=== PATIENT | female | born 1955 | race African-American/Black ===

== ENCOUNTER 2019-09-28 13:45 | Emergency (ER) | payer MEDICARE, MEDICAID, OTHER ==
[~2019-09-28] VITALS: Ht 162.6 cm; Wt 62.0 kg
[~2019-09-28 13:45] MED LIST: AMLO5TAB4 PO; ASPI-1497 PO; ATOR-2 PO; CARV25TA47 PO; LISI-604 PO; TICA90TA PO; TRAM50TA3 PO
[2019-09-28 18:00] LABS: CLARITY URINE CLOUDY (CLEAR); COLOR URINE YELLOW (YELLOW); KETONES URINE NEGATIVE (NEGATIVE); LEUKOCYTE ESTERASE URINE TRACE (NEGATIVE); NITRITE URINE NEGATIVE (NEGATIVE); OCCULT BLOOD URINE NEGATIVE (NEGATIVE); PROTEIN URINE NEGATIVE (NEGATIVE); SPECIFIC GRAVITY URINE 1.011 (1.005-1.030); UROBILINOGEN URINE 0.2 E.U./dL (0.2-1.0)
[2019-09-28 18:15] LABS: *BENZODIAZEPINES SCREEN URINE NEGATIVE (NEGATIVE); *COCAINE SCREEN URINE NEGATIVE (NEGATIVE); CANNABINOID URINE SCREEN NEGATIVE (NEGATIVE); METHADONE URINE SCREEN NEGATIVE (NEGATIVE); OPIATES URINE SCREEN NEGATIVE (NEGATIVE); PHENCYCLIDINE URINE SCREEN NEGATIVE (NEGATIVE)
[2019-09-28 18:16] LABS: *AMPHETAMINES SCREEN URINE NEGATIVE (NEGATIVE); *BARBITURATES SCREEN URINE NEGATIVE (NEGATIVE)
[2019-09-28 18:46] LABS: CHLORIDE 107 mEq/L (98-107)
[2019-09-28 18:51] LABS: BASOPHILS % 1.2 % (0.0-2.0); EOSINOPHILS % 2.7 % (0.0-5.0); HEMATOCRIT. 40.2 % (36.0-48.0); HEMOGLOBIN. 13.2 g/dL (12.0-16.0); LYMPHOCYTES % 30.5 % (20.0-50.0); MEAN CORPUSCULAR HEMOGLOBIN 29.2 pg (28.0-32.0); MEAN CORPUSCULAR VOLUME 88.9 fL (81.0-99.0); MONOCYTES % 10.2 % (2.0-8.0); NEUTROPHILS % 55.4 % (40.0-76.0); PLATELET 216 x1000/uL (130-400); RED BLOOD CELL COUNT 4.53 mill/uL (4.2-5.4); RED CELL DISTRIBUTION WIDTH 13.4 % (11.6-14.6)
[2019-09-28] MEDS ORDERED: NITROFURANTOIN 100MG M/M CAPSULE PO ONE (20:15)
[2019-09-28 22:00] VITALS: BP 121/58
== END 2019-09-28 22:08 | disposition home or self-care (01) ==
LOC: ER 14:08
DX: M94.0 Chondrocostal junction syndrome [Tietze] (principal); D72.819 Decreased white blood cell count, unspecified; N39.0 Urinary tract infection, site not specified; I10 Essential (primary) hypertension; R82.71 Bacteriuria; I25.10 Atherosclerotic heart disease of native coronary artery without angina pectoris; E78.00 Pure hypercholesterolemia, unspecified; Z87.440 Personal history of urinary (tract) infections; Z87.09 Personal history of other diseases of the respiratory system
CPT/HCPCS: 36415; 71045; 80053; 80305; 81003; 83880; 84484; 85025; 93005; 99284; 99285

== ENCOUNTER 2022-04-26 09:19 | Inpatient (IN) | payer MEDICAID, MEDICARE, OTHER ==
[2022-04-25 17:00] VITALS: BP 170/89
[~2022-04-26] VITALS: Ht 162.6 cm; Wt 47.6 kg
[~2022-04-26 09:19] MED LIST changes: -LISI-604 PO; +LISI20TA31 PO
[2022-04-26] MEDS ORDERED: CARVEDILOL 3.125 MG TABLET PO ONE (10:30)
[2022-04-26] MEDS ORDERED: LISINOPRIL 20MG TABLET PO ONE (10:30)
[2022-04-26 11:37] LABS: BASOPHILS % 1.1 % (0.0-2.0); HEMATOCRIT. 43.4 % (36.0-48.0); HEMOGLOBIN. 14.1 g/dL (12.0-16.0); LYMPHOCYTES % 38.7 % (20.0-50.0); MEAN CORPUSCULAR HEMOGLOBIN 28.7 pg (28.0-32.0); MEAN CORPUSCULAR VOLUME 88.5 fL (81.0-99.0); MEAN PLATELET VOLUME 8.8 fl (7.4-10.4); MONOCYTES % 10.9 % (2.0-8.0); NEUTROPHILS % 45.3 % (40.0-76.0); PLATELET 203 x1000/uL (130-400); RED BLOOD CELL COUNT 4.91 mill/uL (4.2-5.4); RED CELL DISTRIBUTION WIDTH 13.5 % (11.6-14.6)
[2022-04-26 11:42] LABS: CHLORIDE 107 mEq/L (98-107)
[2022-04-26] MEDS ORDERED: ACETAMINOPHEN 325MG TABLET PO ONE (12:15)
[2022-04-26] MEDS ORDERED: ACETAMINOPHEN 325MG TABLET PO PRN ×2 (16:15)
[2022-04-26] MEDS ORDERED: MAGNESIUM/ALUMINUM HYDROXIDE/SIMETHICONE 30ML UDC PO PRN (16:15)
[2022-04-26] MEDS ORDERED: GUAIFENESIN 200MG/10ML SUGAR FREE UDC PO PRN (16:15)
[2022-04-26] MEDS ORDERED: IPRATROPIUM/ALBUTEROL 0.5-3(2.5)MG/3ML NEB HHN PRN (16:15)
[2022-04-26] MEDS ORDERED: ONDANSETRON HCL 4MG/2ML INJ IV PRN (16:15)
[2022-04-26] MEDS ORDERED: NALOXONE HCL 0.4MG/ML VIAL IV PRN (16:15)
[2022-04-26] MEDS ORDERED: DOCUSATE SODIUM 100MG CAPSULE PO PRN (16:15)
[2022-04-26] MEDS ORDERED: MEDICATION NOT ON FORMULARY EA (Carvedilol 25 MG) PO SCH (17:00)
[2022-04-26] MEDS ORDERED: IPRATROPIUM BROMIDE (0.02%) 0.5MG/2.5ML NEB HHN PRN (17:15)
[2022-04-26] MEDS ORDERED: ALBUTEROL (0.083%) 2.5MG/3ML NEB HHN PRN (17:15)
[2022-04-26] MEDS: CLONIDINE 0.1MG TABLET PO PRN (17:34)
[2022-04-26] MEDS: HYDROCODONE/ACETAMINOPHEN 5/325MG TABLET PO PRN (17:37)
[2022-04-26 20:00] VITALS: BP 107/57
[2022-04-26] MEDS: CARVEDILOL 12.5MG TABLET PO SCH (20:12)
[2022-04-26] MEDS: ENOXAPARIN 40MG/0.4ML SYR SUBCUT SCH (20:25)
[2022-04-26] MEDS: TICAGRELOR 90 MG TABLET PO SCH (20:26)
[2022-04-26 23:58] LABS: CREATINE KINASE 50 IU/L (26-192); CREATINE KINASE MB FRACTION < 1.0 ng/mL (0.5-3.6)
[2022-04-27] VITALS: BP 105/61
[2022-04-27 02:48] LABS: CLARITY URINE CLEAR (CLEAR); COLOR URINE YELLOW (YELLOW); KETONES URINE TRACE (NEGATIVE); LEUKOCYTE ESTERASE URINE NEGATIVE (NEGATIVE); NITRITE URINE NEGATIVE (NEGATIVE); OCCULT BLOOD URINE NEGATIVE (NEGATIVE); PROTEIN URINE NEGATIVE (NEGATIVE); UROBILINOGEN URINE 0.2 E.U./dL (0.2-1.0)
[2022-04-27 04:00] VITALS: BP 128/69
[2022-04-27] MEDS: HYDROCODONE/ACETAMINOPHEN 5/325MG TABLET PO PRN ×3 (04:29→22:37)
[2022-04-27 06:23] LABS: EOSINOPHILS % 4.9 % (0.0-5.0); HEMATOCRIT. 37.3 % (36.0-48.0); HEMOGLOBIN. 12.5 g/dL (12.0-16.0); MEAN CORPUSCULAR HEMOGLOBIN 29.3 pg (28.0-32.0); MEAN CORPUSCULAR VOLUME 87.6 fL (81.0-99.0); MEAN PLATELET VOLUME 9.1 fl (7.4-10.4); MONOCYTES % 11.4 % (2.0-8.0); NEUTROPHILS % 42.7 % (40.0-76.0); PLATELET 190 x1000/uL (130-400); RED BLOOD CELL COUNT 4.26 mill/uL (4.2-5.4); RED CELL DISTRIBUTION WIDTH 13.2 % (11.6-14.6)
[2022-04-27 07:04] LABS: CHLORIDE 105 mEq/L (98-107)
[2022-04-27 08:00] VITALS: BP 107/64
[2022-04-27 08:59] LABS: CREATINE KINASE 51 IU/L (26-192); CREATINE KINASE MB FRACTION < 1.0 ng/mL (0.5-3.6); HDL CHOLESTEROL 61 mg/dL (40-59); T4 FREE 0.94 ng/dL (0.76-1.46)
[2022-04-27] MEDS ORDERED: ATORVASTATIN CALCIUM 40MG TABLET PO SCH (09:00)
[2022-04-27] MEDS: AMLODIPINE 5MG TABLET PO SCH ×2 (09:00→10:21)
[2022-04-27] MEDS: CARVEDILOL 12.5MG TABLET PO SCH ×2 (09:00→10:21)
[2022-04-27] MEDS ORDERED: MEDICATION NOT ON FORMULARY EA (Atorvastatin Calcium 80 MG) PO SCH (09:00)
[2022-04-27] MEDS: LISINOPRIL 20MG TABLET PO SCH ×2 (09:00→10:22)
[2022-04-27] MEDS ORDERED: POTASSIUM CHLORIDE 20MEQ TABLET SR PO NR (09:30)
[2022-04-27] MEDS: TICAGRELOR 90 MG TABLET PO SCH ×2 (10:22→20:47)
[2022-04-27] MEDS: ASPIRIN 81MG EC TABLET PO SCH (10:22)
[2022-04-27 12:00] VITALS: BP 100/56
[2022-04-27 15:02] LABS: LDL CHOLESTEROL 117 mg/dL (5-100)
[2022-04-27 16:00] VITALS: BP 127/71
[2022-04-27 20:00] VITALS: BP 119/70
[2022-04-27] MEDS: ENOXAPARIN 40MG/0.4ML SYR SUBCUT SCH (20:47)
[2022-04-27] MEDS: ATORVASTATIN CALCIUM 40MG TABLET PO SCH (20:47)
[2022-04-28] VITALS: BP 102/67
[2022-04-28 04:00] VITALS: BP 147/80
[2022-04-28] MEDS: HYDROCODONE/ACETAMINOPHEN 5/325MG TABLET PO PRN ×4 (04:42→14:09)
[2022-04-28 07:50] LABS: BASOPHILS % 0.8 % (0.0-2.0); EOSINOPHILS % 4.4 % (0.0-5.0); HEMATOCRIT. 38.8 % (36.0-48.0); HEMOGLOBIN. 12.6 g/dL (12.0-16.0); MEAN CORPUSCULAR HEMOGLOBIN 28.7 pg (28.0-32.0); MEAN CORPUSCULAR VOLUME 88.1 fL (81.0-99.0); MEAN PLATELET VOLUME 8.7 fl (7.4-10.4); MONOCYTES % 10.8 % (2.0-8.0); PLATELET 192 x1000/uL (130-400); RED CELL DISTRIBUTION WIDTH 13.2 % (11.6-14.6)
[2022-04-28 08:00] VITALS: BP 145/72
[2022-04-28] MEDS ORDERED: POTASSIUM PHOS,M-BASIC-D-BASIC 10 MMOL in DEXT 5% WATER 246.6667 ML IV ONE (08:00)
[2022-04-28 08:20] LABS: CHLORIDE 107 mEq/L (98-107)
[2022-04-28] MEDS: ASPIRIN 81MG EC TABLET PO SCH (08:50)
[2022-04-28] MEDS: CARVEDILOL 12.5MG TABLET PO SCH (08:50)
[2022-04-28] MEDS: TICAGRELOR 90 MG TABLET PO SCH ×2 (08:57→20:45)
[2022-04-28 09:32] LABS: PHOSPHORUS 3.9 mg/dL (2.5-4.9)
[2022-04-28 10:52] LABS: PROTHROMBIN TIME 10.9 sec (9.6-11.0)
[2022-04-28 12:00] VITALS: BP 100/61
[2022-04-28] MEDS ORDERED: HYDROCODONE/ACETAMINOPHEN 7.5/325MG TABLET PO PRN (16:30)
[2022-04-28] MEDS: HYDROCODONE/ACETAMINOPHEN 7.5/325MG TABLET PO PRN ×2 (17:09→20:45)
[2022-04-28 20:00] VITALS: BP 132/72
[2022-04-28] MEDS: ATORVASTATIN CALCIUM 40MG TABLET PO SCH (20:45)
[2022-04-29] VITALS: BP 151/80
[2022-04-29 04:00] VITALS: BP 133/77
[2022-04-29 06:50] LABS: BASOPHILS % 1.1 % (0.0-2.0); EOSINOPHILS % 5.7 % (0.0-5.0); HEMATOCRIT. 41.4 % (36.0-48.0); HEMOGLOBIN. 13.7 g/dL (12.0-16.0); LYMPHOCYTES % 44.5 % (20.0-50.0); MEAN CORPUSCULAR VOLUME 87.7 fL (81.0-99.0); MEAN PLATELET VOLUME 8.9 fl (7.4-10.4); MONOCYTES % 13.2 % (2.0-8.0); NEUTROPHILS % 35.5 % (40.0-76.0); PLATELET 200 x1000/uL (130-400); RED BLOOD CELL COUNT 4.72 mill/uL (4.2-5.4); RED CELL DISTRIBUTION WIDTH 13.1 % (11.6-14.6)
[2022-04-29 07:47] LABS: CHLORIDE 106 mEq/L (98-107)
[2022-04-29 08:00] VITALS: BP 152/69
[2022-04-29] MEDS: TICAGRELOR 90 MG TABLET PO SCH (08:46)
[2022-04-29] MEDS: CARVEDILOL 12.5MG TABLET PO SCH ×2 (09:33→21:14)
[2022-04-29] MEDS: LISINOPRIL 20MG TABLET PO SCH (09:34)
[2022-04-29] MEDS: AMLODIPINE 5MG TABLET PO SCH (09:34)
[2022-04-29 12:00] VITALS: BP 127/66
[2022-04-29] MEDS: HYDROCODONE/ACETAMINOPHEN 7.5/325MG TABLET PO PRN (13:44)
[2022-04-29 16:00] VITALS: BP 153/68
[2022-04-29 20:00] VITALS: BP 144/77
[2022-04-29] MEDS: ATORVASTATIN CALCIUM 40MG TABLET PO SCH (21:13)
[2022-04-30] VITALS: BP 132/68
[2022-04-30 04:00] VITALS: BP 131/74
[2022-04-30] MEDS: HYDROCODONE/ACETAMINOPHEN 10/325MG TABLET PO PRN (04:55)
[2022-04-30 07:35] LABS: BASOPHILS % 0.8 % (0.0-2.0); EOSINOPHILS % 4.4 % (0.0-5.0); HEMATOCRIT. 41.1 % (36.0-48.0); HEMOGLOBIN. 13.5 g/dL (12.0-16.0); LYMPHOCYTES % 39.5 % (20.0-50.0); MEAN CORPUSCULAR HEMOGLOBIN 28.7 pg (28.0-32.0); MEAN CORPUSCULAR VOLUME 87.6 fL (81.0-99.0); MEAN PLATELET VOLUME 8.8 fl (7.4-10.4); MONOCYTES % 12.5 % (2.0-8.0); NEUTROPHILS % 42.8 % (40.0-76.0); PLATELET 193 x1000/uL (130-400)
[2022-04-30 07:50] VITALS: BP 92/57
[2022-04-30] MEDS: LISINOPRIL 20MG TABLET PO SCH (07:52)
[2022-04-30] MEDS: AMLODIPINE 5MG TABLET PO SCH (07:52)
[2022-04-30] MEDS: CARVEDILOL 12.5MG TABLET PO SCH ×2 (07:52→21:11)
[2022-04-30 08:46] LABS: CHLORIDE 106 mEq/L (98-107)
[2022-04-30 08:55] LABS: PHOSPHORUS 3.6 mg/dL (2.5-4.9)
[2022-04-30 12:40] VITALS: BP 114/73
[2022-04-30] MEDS: HYDROCODONE/ACETAMINOPHEN 5/325MG TABLET PO PRN ×2 (12:45→21:10)
[2022-04-30 15:30] VITALS: BP 140/67
[2022-04-30 20:00] VITALS: BP 124/65
[2022-04-30] MEDS: ATORVASTATIN CALCIUM 40MG TABLET PO SCH (21:10)
[2022-05-01] VITALS: BP 120/61
[2022-05-01 04:00] VITALS: BP 137/71
[2022-05-01] MEDS ORDERED: GENTAMICIN SULF 40MG/ML 2ML VIAL ONE (05:40)
[2022-05-01] MEDS ORDERED: LIDOCAINE HCL 1%/EPI 1:200,000 30 ML VIAL ONE (05:40)
[2022-05-01] MEDS ORDERED: THROMBIN (BOVINE) 5000 UNITS/VIAL TOP ONE (05:40)
[2022-05-01] MEDS ORDERED: SKIN ADHESIVE 0.7 GM EA TOP ONE (05:40)
[2022-05-01] MEDS ORDERED: PROPOFOL 200MG/20ML VIAL IV ONE (06:30)
[2022-05-01] MEDS ORDERED: MIDAZOLAM HCL 2 MG/2 ML VIAL ONE (06:38)
[2022-05-01] MEDS ORDERED: FENTANYL CITRATE/PF 50MCG/ML 2ML VIAL ONE (06:40)
[2022-05-01] MEDS ORDERED: ONDANSETRON HCL 4MG/2ML INJ ONE (08:28)
[2022-05-01] MEDS ORDERED: SUCCINYLCHOLINE CHLORIDE 200MG/10ML IV ONE (08:28)
[2022-05-01] MEDS ORDERED: CEFAZOLIN SODIUM 1000MG/VIAL ONE (08:28)
[2022-05-01] MEDS ORDERED: LIDOCAINE HCL 1% 20ML VIAL (Pyxis) INJ ONE (08:29)
[2022-05-01] MEDS ORDERED: ROCURONIUM BROMIDE 10MG/ML VIAL 5ML IV ONE (08:29)
[2022-05-01] MEDS ORDERED: FENTANYL CITRATE/PF 50MCG/ML 2ML VIAL IV PRN (08:30)
[2022-05-01] MEDS: AMLODIPINE 5MG TABLET PO SCH (08:51)
[2022-05-01] MEDS: LISINOPRIL 20MG TABLET PO SCH (08:51)
[2022-05-01] MEDS: CARVEDILOL 12.5MG TABLET PO SCH ×2 (08:51→21:09)
[2022-05-01 11:57] VITALS: BP 144/72
[2022-05-01] MEDS: MORPHINE SULFATE 4 MG/ML CPJ (NOT FOR IM USE) IV PRN (13:42)
[2022-05-01] MEDS ORDERED: CEFAZOLIN SODIUM 1000MG/VIAL IV SCH (14:00)
[2022-05-01] MEDS: CEFAZOLIN 1000MG PREMIX 50 ML IV SCH ×2 (15:22→23:39)
[2022-05-01 16:00] VITALS: BP 142/71
[2022-05-01 16:56] LABS: HEMATOCRIT. 42.8 % (36.0-48.0); HEMOGLOBIN. 13.8 g/dL (12.0-16.0); MEAN CORPUSCULAR HEMOGLOBIN 28.9 pg (28.0-32.0); MEAN CORPUSCULAR VOLUME 89.8 fL (81.0-99.0); MEAN PLATELET VOLUME 9.2 fl (7.4-10.4); PLATELET 136 x1000/uL (130-400); RED BLOOD CELL COUNT 4.76 mill/uL (4.2-5.4); RED CELL DISTRIBUTION WIDTH 12.7 % (11.6-14.6)
[2022-05-01 17:02] LABS: CHLORIDE 106 mEq/L (98-107)
[2022-05-01 20:00] VITALS: BP_SYST 127; BP_SYST 149; BP_DIAS 64; BP_DIAS 80
[2022-05-01] MEDS: HYDROCODONE/ACETAMINOPHEN 10/325MG TABLET PO PRN (21:09)
[2022-05-01] MEDS: ATORVASTATIN CALCIUM 40MG TABLET PO SCH (21:09)
[2022-05-01 21:49] LABS: PLATELET ESTIMATE NORMAL
[2022-05-02] VITALS: BP 116/86
[2022-05-02 04:00] VITALS: BP 112/73
[2022-05-02 06:01] LABS: HEMATOCRIT 40.3 % (36.0-48.0); HEMOGLOBIN 13.3 g/dL (12.0-16.0); MEAN CORPUSCULAR HEMOGLOBIN 28.9 pg (28.0-32.0); MEAN CORPUSCULAR VOLUME 87.4 fL (81.0-99.0); PLATELET 201 x1000/uL (130-400); RED BLOOD CELL COUNT 4.61 mill/uL (4.2-5.4); RED CELL DISTRIBUTION WIDTH 12.8 % (11.6-14.6)
[2022-05-02 06:13] LABS: CHLORIDE 102 mEq/L (98-107)
[2022-05-02 06:20] LABS: PHOSPHORUS 3.3 mg/dL (2.5-4.9)
[2022-05-02 08:00] VITALS: BP 131/74
[2022-05-02] MEDS: CEFAZOLIN 1000MG PREMIX 50 ML IV SCH (08:23)
[2022-05-02] MEDS: LISINOPRIL 20MG TABLET PO SCH (08:24)
[2022-05-02] MEDS: CARVEDILOL 12.5MG TABLET PO SCH ×2 (08:24→21:45)
[2022-05-02] MEDS: AMLODIPINE 5MG TABLET PO SCH (08:24)
[2022-05-02 12:00] VITALS: BP 124/65
[2022-05-02] MEDS: ENOXAPARIN 30MG/0.3ML SYR SUBCUT SCH (13:17)
[2022-05-02] MEDS: MORPHINE SULFATE 4 MG/ML CPJ (NOT FOR IM USE) IV PRN ×2 (13:26→23:55)
[2022-05-02 16:00] VITALS: BP 99/56
[2022-05-02 20:00] VITALS: BP 129/49
[2022-05-02] MEDS: ATORVASTATIN CALCIUM 40MG TABLET PO SCH (21:45)
[2022-05-03] VITALS (7 sets, daily range): BP systolic 72–126; BP diastolic 43–66
[2022-05-03 07:06] LABS: BASOPHILS % 0.4 % (0.0-2.0); HEMATOCRIT. 36.7 % (36.0-48.0); HEMOGLOBIN. 12.2 g/dL (12.0-16.0); MEAN CORPUSCULAR HEMOGLOBIN 29.1 pg (28.0-32.0); MEAN CORPUSCULAR VOLUME 87.4 fL (81.0-99.0); MEAN PLATELET VOLUME 9.3 fl (7.4-10.4); MONOCYTES % 12.3 % (2.0-8.0); NEUTROPHILS % 69.3 % (40.0-76.0); PLATELET 180 x1000/uL (130-400)
[2022-05-03 08:27] LABS: CHLORIDE 103 mEq/L (98-107)
[2022-05-03] MEDS: AMLODIPINE 5MG TABLET PO SCH (09:08)
[2022-05-03] MEDS: CARVEDILOL 12.5MG TABLET PO SCH (09:08)
[2022-05-03] MEDS: LISINOPRIL 20MG TABLET PO SCH (09:08)
[2022-05-03] MEDS ORDERED: SODIUM CHLORIDE 0.9% 500 ML IV STA (11:23)
[2022-05-03] MEDS ORDERED: SODIUM CHLORIDE 0.9% 500 ML IV ONE ×2 (11:30→12:00)
[2022-05-03] MEDS: ENOXAPARIN 30MG/0.3ML SYR SUBCUT SCH (13:40)
[2022-05-03] MEDS: HYDROCODONE/ACETAMINOPHEN 10/325MG TABLET PO PRN (16:21)
[2022-05-03] MEDS: ATORVASTATIN CALCIUM 40MG TABLET PO SCH (21:30)
[2022-05-04] VITALS (7 sets, daily range): BP systolic 96–138; BP diastolic 42–72
[2022-05-04] MEDS: HYDROCODONE/ACETAMINOPHEN 10/325MG TABLET PO PRN ×3 (00:39→15:20)
[2022-05-04] MEDS: AMLODIPINE 5MG TABLET PO SCH (09:18)
[2022-05-04] MEDS: LISINOPRIL 20MG TABLET PO SCH (09:19)
[2022-05-04] MEDS: ENOXAPARIN 30MG/0.3ML SYR SUBCUT SCH (13:28)
[2022-05-04] MEDS: ATORVASTATIN CALCIUM 40MG TABLET PO SCH (21:01)
[2022-05-05] VITALS (7 sets, daily range): BP systolic 104–162; BP diastolic 53–78
[2022-05-05] MEDS: MORPHINE SULFATE 4 MG/ML CPJ (NOT FOR IM USE) IV PRN (00:28)
[2022-05-05] MEDS: LISINOPRIL 20MG TABLET PO SCH (08:51)
[2022-05-05] MEDS: AMLODIPINE 5MG TABLET PO SCH (08:51)
[2022-05-05] MEDS: TRAMADOL 50MG TABLET PO PRN ×3 (10:20→21:23)
[2022-05-05] MEDS: ENOXAPARIN 30MG/0.3ML SYR SUBCUT SCH (13:48)
[2022-05-05] MEDS: ATORVASTATIN CALCIUM 40MG TABLET PO SCH (20:38)
[2022-05-05] MEDS: CLONIDINE 0.1MG TABLET PO PRN (21:24)
[2022-05-06] VITALS (8 sets, daily range): BP systolic 108–126; BP diastolic 62–81
[2022-05-06] MEDS: LISINOPRIL 20MG TABLET PO SCH ×2 (08:48→08:57)
[2022-05-06] MEDS: AMLODIPINE 5MG TABLET PO SCH ×2 (08:53→08:57)
[2022-05-06] MEDS: ENOXAPARIN 30MG/0.3ML SYR SUBCUT SCH (12:34)
[2022-05-06] MEDS: TRAMADOL 50MG TABLET PO PRN ×2 (12:35→20:29)
[2022-05-06] MEDS: ATORVASTATIN CALCIUM 40MG TABLET PO SCH (20:29)
== END 2022-05-06 20:52 | disposition home health service (06) | DRG 516 ==
LOC: ER 09:36 → MICUSO 13:50 → EDBEDREQTM 14:02 → EDBEDREQ 14:02 → 8WST 17:07 → 7EST 04-29 16:42
PROVIDERS: ADMIT Hospitalist; ATTEND Hospitalist
PROC: 01NB0ZZ Release Lumbar Nerve, Open Approach (ICD-10-PCS; principal; 2022-05-01)
PROC: 4A11X4G Monitoring of Peripheral Nervous Electrical Activity, Intraoperative, External Approach (ICD-10-PCS; 2022-05-01)
DX: M48.07 Spinal stenosis, lumbosacral region (principal); I25.110 Atherosclerotic heart disease of native coronary artery with unstable angina pectoris; M54.16 Radiculopathy, lumbar region; I16.0 Hypertensive urgency; D72.819 Decreased white blood cell count, unspecified; I35.0 Nonrheumatic aortic (valve) stenosis; I10 Essential (primary) hypertension; Z20.822 Contact with and (suspected) exposure to COVID-19; G89.29 Other chronic pain; I73.9 Peripheral vascular disease, unspecified; E78.00 Pure hypercholesterolemia, unspecified; Z95.1 Presence of aortocoronary bypass graft; Z87.891 Personal history of nicotine dependence; Z95.5 Presence of coronary angioplasty implant and graft
CPT/HCPCS: 36415; 71045; 72100; 72148; 76000; 80048; 80053; 80061; 81003; 82550; 82553; 83735; 84100; 84439; 84443; 84484; 85025; 85027; 86850; 86870; 86900; 87426; 88311; 93005; 93306; 93923; 93971; 95925; 95926; 95928; 95929; 97116; 97162; 97164; 97166; 97168; 97530; 97535; 99285; C1893; J0330; J0690; J1580; J1650; J2250; J2270; J2405; J2704; J3010; J3490; J7030; L3908; J8499